=== PATIENT | male | born 1970 | race Hispanic/Latino ===

== ENCOUNTER 2016-04-16 19:01 | Emergency (ER) | payer OTHER ==
--- NOTE | 2016-04-16 19:36 | Emergency Department Report ---
Chief Complaint: Chest Pain Stated Complaint: HIGH BP/CHEST PAIN Time Seen by Provider: 04/16/16 19:32 - HPI History of Present Illness: Patient is a 45 y/o male who presents due to chest pain x 2 weeks. Patient states he has had SOB and diaphoresis. Patient denies any nausea, vomiting or arm pain. Patient denies any dyspnea on exertion, he denies any chest pain related to exertion. - ROS Review of Systems: see HPI - Exam Vital Signs: Vital Signs 04/16/16 19:08 Temperature 98.4 F Pulse Rate 100 H Blood Pressure 143/98 Physical Exam: NAD MSE screening note: Focused history and physical exam performed. Due to findings the following was ordered:CHEST PAIN PROTOCOLS ED Disposition for MSE Condition: Stable
[2016-04-16 20:27] LABS: Basophils % (Auto) 0.7 % (0.0-1.8); Eosinophils % (Auto) 0.3 % (0.0-4.3); Hematocrit 41.2 % (35.5-45.6); Hemoglobin 13.7 gm/dl (11.8-15.2); Mean Corpuscular HGB Conc 33 % (32-34); Mean Corpuscular Hemoglobin 31 pg (28-32); Mean Corpuscular Volume 92 fl (84-94); Platelet Count 273 K/mm3 (140-440); Red Blood Count 4.48 M/mm3 (3.65-5.03); Red Cell Distribution Width 13.2 % (13.2-15.2); White Blood Count 11.6 K/mm3 (4.5-11.0)
[2016-04-16 20:37] LABS: INR 1.02 (0.87-1.13); Partial Thromboplastin Time 29.6 Sec. (24.2-36.6)
[2016-04-16 20:49] LABS: Creatine Kinase MB 1.6 ng/mL (0.0-4.0)
[2016-04-16 20:53] LABS: Alanine Aminotransferase 20 units/L (7-56); Albumin/Globulin Ratio 1.8 %; Alkaline Phosphatase 89 units/L (35-129); BUN/Creatinine Ratio 17.14; Bilirubin,Total 0.4 mg/dL (0.1-1.2); Blood Urea Nitrogen 12 mg/dL (9-20); Calcium 9.8 mg/dL (8.4-10.2); Carbon Dioxide 28 mmol/L (22-30); Chloride 99.5 mmol/L (98-107); Creatine Kinase 145 units/L (55-170); Glucose 101 mg/dL (75-100); Lipase 25 units/L (13-60); Potassium 3.8 mmol/L (3.6-5.0); Sodium 144 mmol/L (137-145); Total Protein 7.8 g/dL (6.3-8.2)
[2016-04-16 21:00] LABS: Anion Gap 20 mmol/L
--- NOTE | 2016-04-17 02:21 | Emergency Department Report ---
ED Chest Pain HPI - General Chief Complaint: Chest Pain Stated Complaint: HIGH BP/CHEST PAIN Time Seen by Provider: 04/17/16 02:19 Source: patient Mode of arrival: Ambulatory Limitations: No Limitations - History of Present Illness Initial Comments: Patient is a 45 y/o male who presents due to chest pain x 2 weeks. Patient states he has had SOB and diaphoresis. Patient denies any nausea, vomiting or arm pain. Patient denies any dyspnea on exertion, he denies any chest pain related to exertion. Patient had similar incident in the past and he reported that he had echocardiogram and stress test done at Dr. Torres's office last Saturday. Chest pain with presentation to emergency room was 4-10. Patient reports that he is under a lot of stress at home right now. Patient's also smoker and said he plans to quit. Cough, fever or chills. Patient said that his doctor is monitoring his blood pressure because it's been elevated and he is keeping a log 4 months and has follow-up visit on May [address] Torres. He said he doesn't know what the results of the stress test or echocardiogram was. Patient takes Zoloft for depression. MD Complaint: chest pain Onset/Timin -: week(s) Onset: other Pain Location: other (mid chest) Pain Radiation: none Severity: mild Severity scale (0 -10): 4 Quality: dull Consistency: intermittent Improves With: nothing Worsens With: nothing Context: other (unknown) re: diaphoresis. denies: nausea, vomting, dyspnea, sense of impending doom Other Symptoms: denies: cough, fever, syncope, rash, acid taste in mouth, leg swelling, palpitations, burping Treatments Prior to Arrival: none Aspirin use within the Past 7 Days: (0) No - Related Data On Oral Contraceptives: No Allergies Allergy/AdvReac Type Severity Reaction Status Date / Time No Known Allergies Allergy Unverified 04/16/16 19:23 DOUG score - Doug Score Age > 65: (0) No Aspirin use within the Past 7 Days: (0) No 3 or more CAD Risk Factors: (0) No 2 or more Angina events in past 24 hrs: (0) No Known CAD with more than 50% Stenosis: (0) No Elevated Cardiac Markers: (0) No ST Deviation Greater than 0.5mm: (0) No DOUG Score: 0 ED Review of Systems ROS: Stated complaint: HIGH BP/CHEST PAIN Other details as noted in HPI Comment: All other systems reviewed and negative Constitutional: diaphoresis (none today). denies: chills, fever Eyes: denies: eye pain ENT: denies: ear pain, throat pain Respiratory: no symptoms reported Cardiovascular: chest pain. denies: palpitations, dyspnea on exertion, orthopnea, edema, syncope, paroxysmal nocturnal dyspnea Gastrointestinal: denies: abdominal pain, nausea, vomiting, diarrhea, constipation Musculoskeletal: denies: back pain, arthralgia Skin: denies: rash Neurological: denies: headache, weakness, numbness, paresthesias, confusion, abnormal gait, vertigo ED Past Medical Hx - Past Medical History Previous Medical History?: Yes Hx Hypertension: Yes (no medication as yet) Hx Psychiatric Treatment: No (depression) - Surgical History Past Surgical History?: Yes Additional Surgical History: right knee, eye surgery for lazy eye - Family History Family history: hypertension - Social History Smoking Status: Current Every Day Smoker Substance Use Type: None ED Physical Exam - General Limitations: No Limitations General appearance: alert, in no apparent distress - Head Head exam: Present: atraumatic, normocephalic, normal inspection - Eye Eye exam: Present: normal appearance, PERRL, EOMI Pupils: Present: normal accommodation - ENT ENT exam: Present: normal exam, normal orophraynx, mucous membranes moist, TM's normal bilaterally, normal external ear exam - Neck Neck exam: Present: normal inspection, full ROM. Absent: tenderness, meningismus, lymphadenopathy - Respiratory Respiratory exam: Present: normal lung sounds bilaterally. Absent: respiratory distress - Cardiovascular Cardiovascular Exam: Present: regular rate, normal rhythm, normal heart sounds. Absent: systolic murmur, diastolic murmur, rubs, gallop, clicks, JVD, S3, S4 - Expanded Cardiovascular Exam Expanded Peripheral pulses: 2+: Radial (R), Radial (L), Posterior Tibialis (R), Posterior Tibialis (L), Dorsalis Pedis (R), Dorsalis Pedis (L) - GI/Abdominal GI/Abdominal exam: Present: soft, normal bowel sounds. Absent: distended, tenderness, guarding, rebound, rigid - Extremities Exam Extremities exam: Present: normal inspection, full ROM, normal capillary refill. Absent: tenderness, pedal edema, joint swelling, calf tenderness - Back Exam Back exam: Present: normal inspection, full ROM. Absent: tenderness, CVA tenderness (R), CVA tenderness (L), muscle spasm, paraspinal tenderness, vertebral tenderness, rash noted - Neurological Exam Neurological exam: Present: alert, oriented X3, normal gait, reflexes normal. Absent: motor sensory deficit - Psychiatric Psychiatric exam: Present: normal affect, normal mood - Skin Skin exam: Present: warm, dry, intact, normal color. Absent: rash ED Course Vital Signs 04/16/16 04/17/16 19:08 02:21 Temperature 98.4 F 97.8 F Pulse Rate 100 H 69 Respiratory 20 Rate Blood Pressure 143/98 Blood Pressure 121/82 [Right] O2 Sat by Pulse 99 Oximetry - Reevaluation(s) Reevaluation #1: 04/17/16 02:45 Patient had an uneventful ED stay. He had episode of chest pain upon arrival and to emergency room and he reports he does not have any chest pain at present. ED Medical Decision Making - Lab Data Result diagrams: 04/16/16 19:57 04/16/16 19:57 Lab Results 04/16/16 04/16/16 04/16/16 Range/Units 19:57 19:57 19:57 WBC 11.6 H (4.5-11.0) K/mm3 RBC 4.48 (3.65-5.03) M/mm3 Hgb 13.7 (11.8-15.2) gm/dl Hct 41.2 (35.5-45.6) % MCV 92 (84-94) fl MCH 31 (28-32) pg MCHC 33 (32-34) % RDW 13.2 (13.2-15.2) % Plt Count 273 (140-440) K/mm3 Lymph % (Auto) 18.9 (13.4-35.0) % [place] % (Auto) 8.7 H (0.0-7.3) % Eos % (Auto) 0.3 (0.0-4.3) % Baso % (Auto) 0.7 (0.0-1.8) % Lymph # 2.2 (1.2-5.4) K/mm3 [place] # 1.0 H (0.0-0.8) K/mm3 Eos # 0.0 (0.0-0.4) K/mm3 Baso # 0.1 (0.0-0.1) K/mm3 Seg Neutrophils % 71.4 H (40.0-70.0) % Seg Neutrophils # 8.2 H (1.8-7.7) K/mm3 PT 13.3 (12.2-14.9) Sec. INR 1.02 (0.87-1.13) APTT 29.6 (24.2-36.6) Sec. Sodium 144 (137-145) mmol/L Potassium 3.8 (3.6-5.0) mmol/L Chloride 99.5 (98-107) mmol/L Carbon Dioxide 28 (22-30) mmol/L Anion Gap 20 mmol/L BUN 12 (9-20) mg/dL Creatinine 0.7 L (0.8-1.5) mg/dL Estimated GFR > 60 ml/min BUN/Creatinine Ratio 17.14 % Glucose 101 H (75-100) mg/dL Calcium 9.8 (8.4-10.2) mg/dL Total Bilirubin 0.4 (0.1-1.2) mg/dL AST 21 (5-40) units/L ALT 20 (7-56) units/L Alkaline Phosphatase 89 (35-129) units/L Total Creatine Kinase 145 (55-170) units/L CK-MB (CK-2) 1.6 (0.0-4.0) ng/mL CK-MB (CK-2) Rel Index 1.1 (0-4) Troponin T < 0.010 (0.00-0.029) ng/mL Total Protein 7.8 (6.3-8.2) g/dL Albumin 5.0 (3.9-5) g/dL Albumin/Globulin Ratio 1.8 % Lipase 25 (13-60) units/L 04/16/ Range/Units 21:45 WBC (4.5-11.0) K/mm3 RBC (3.65-5.03) M/mm3 Hgb (11.8-15.2) gm/dl Hct (35.5-45.6) % MCV (84-94) fl MCH (28-32) pg MCHC (32-34) % RDW (13.2-15.2) % Plt Count (140-440) K/mm3 Lymph % (Auto) (13.4-35.0) % [place] % (Auto) (0.0-7.3) % Eos % (Auto) (0.0-4.3) % Baso % (Auto) (0.0-1.8) % Lymph # (1.2-5.4) K/mm3 [place] # (0.0-0.8) K/mm3 Eos # (0.0-0.4) K/mm3 Baso # (0.0-0.1) K/mm3 Seg Neutrophils % (40.0-70.0) % Seg Neutrophils # (1.8-7.7) K/mm3 PT (12.2-14.9) Sec. INR (0.87-1.13) APTT (24.2-36.6) Sec. Sodium (137-145) mmol/L Potassium (3.6-5.0) mmol/L Chloride (98-107) mmol/L Carbon Dioxide (22-30) mmol/L Anion Gap mmol/L BUN (9-20) mg/dL Creatinine (0.8-1.5) mg/dL Estimated GFR ml/min BUN/Creatinine Ratio % Glucose (75-100) mg/dL Calcium (8.4-10.2) mg/dL Total Bilirubin (0.1-1.2) mg/dL AST (5-40) units/L ALT (7-56) units/L Alkaline Phosphatase (35-129) units/L Total Creatine Kinase (55-170) units/L CK-MB (CK-2) (0.0-4.0) ng/mL CK-MB (CK-2) Rel Index (0-4) Troponin T < 0.010 (0.00-0.029) ng/mL Total Protein (6.3-8.2) g/dL Albumin (3.9-5) g/dL Albumin/Globulin Ratio % Lipase (13-60) units/L - EKG Data EKG shows normal: sinus rhythm Rate: normal - EKG Data Interpretation: no acute changes 04/17/16 02:46 EKG reviewed by . 04/17/16 02:46 - Radiology Data Radiology results: image reviewed interpreted by me: Chest x-ray revealed no acute cardiopulmonary processes. - Medical Decision Making ED course: I collaborated with Dr. Flood on patient presentation, labs and diagnostic findings and it was determined that patient can be discharged home with close follow-up with cardiology. Patient's CK/CK-MB and troponin were negative. Patient is following with Dr. Torres and had echocardiogram and stress test done 3 days ago. He is keep a log of his blood pressure and will have follow-up appointment with Dr. Torres on May 11, 2016. I went over lab work and x-ray with patient. Discussed smoking cessation with him. I also instructed him that he will need to call Dr. Torres's office in the morning to inform of ED visit for chest pain. Patient was loaded DOUG score. He voiced understanding of discharge instruction and he is having no chest pain at present. Patient discharged home with his . Critical care attestation.: If time is entered above; I have spent that time in minutes in the direct care of this critically ill patient, excluding procedure time. ED Disposition Clinical Impression: Atypical chest pain, Encounter for smoking cessation counseling Disposition: DISCHARGED TO HOME OR SELFCARE Is pt being admited?: No Does the pt Need Aspirin: No Condition: Stable Instructions: Chest Pain (ED), How to Stop Smoking (ED) Additional Instructions: Please stop smoking Follow-up with Dr. Torres in the morning. Please return to the emergency room if you develop chest pain, shortness of breath or difficulty breathing. Referrals: CARMEN CHAVEZ MD [Primary Care Provider] - 2-3 Days PAUL TORRES MD [Staff Physician] - 04/17/16 Forms: Accompanied Note, Work/School Release Form(ED)
[2016-04-17 02:22] VITALS: BP 121/82
--- NOTE | 2016-04-17 03:34 | XRay Report ---
FINAL REPORT PROCEDURE: XR CHEST ROUTINE 2V TECHNIQUE: PA and lateral chest radiographs were obtained. CPT 61280 HISTORY: Chest Pain COMPARISON: No prior studies are available for comparison. FINDINGS: Heart: Normal. Mediastinum/Vessels: Normal. Lungs/Pleural space: Normal. Bony thorax: No acute osseous abnormality. Other: IMPRESSION: Normal examination.
== END 2016-04-17 02:54 | disposition home or self-care (01) ==
LOC: ED 19:01
DX: R07.89 Other chest pain (principal); I10 Essential (primary) hypertension; F17.200 Nicotine dependence, unspecified, uncomplicated; Z71.6 Tobacco abuse counseling
CPT/HCPCS: 36415; 71020; 80053; 82550; 82553; 83690; 84484; 85025; 85610; 85730; 93005; 93010; 99284